=== PATIENT | male | born 1960 | race Caucasian/White ===

== ENCOUNTER 2022-08-10 19:14 | Inpatient (IN) | payer OTHER ==
[~2022-08-10] VITALS: Ht 193 cm; Wt 107.2 kg
[2022-08-10 20:06] LABS: Basophils # (auto) 0 10 ^3/uL (0-0.2); Basophils % (auto) 0.1 % (0.0-2.0); Eosinophils # (auto) 0 10 ^3/uL (0-0.8); Hematocrit 45.5 % (41.0-53.0); Hemoglobin 14.7 g/dL (13.5-17.5); Lymphocytes # (auto) 0.9 10 ^3/uL (0.4-5.4); Lymphocytes % (auto) 7.5 % (10.0-50.0); Mean Corpuscular Hemoglobin 29.3 pg (28.0-32.0); Mean Corpuscular Hgb Conc. 32.4 g/dL (32.0-36.0); Mean Corpuscular Volume 90.5 fL (80.0-100.0); Monocytes # (auto) 1.8 10 ^3/uL (0-1.3); Neutrophils # (auto) 8.8 10 ^3/uL (1.6-8.6); Neutrophils % (auto) 76.4 % (37.0-80.0); Red Blood Cells 5.03 10^6/uL (4.5-5.90); Red Cell Distribution Width 13.7 % (11.8-14.3); White Blood Cell 11.6 10^3/uL (4.4-10.8)
[2022-08-10 20:18] LABS: Albumin 2.8 g/dL (3.4-5.0); Calcium 10.5 mg/dL (8.5-10.1); Magnesium 2.9 mg/dL (1.6-2.6); Potassium 5.2 mmol/L (3.5-5.1)
[2022-08-10 20:26] LABS: Bilirubin, Total 1.2 mg/dL (0.2-1.0); Total Protein 7.3 g/dL (6.4-8.2)
[2022-08-10 20:53] LABS: BUN/Creatinine Ratio 31.9 (10.0-20.0)
[2022-08-10] MEDS ORDERED: SODIUM CHLORIDE 0.9% 1,000 ML IV ONE ×2 (21:00)
[2022-08-10] MEDS ORDERED: InsuLIN REG 1unit/0.01ml Soln (100units/ml) IV ONE (21:00)
[2022-08-10] MEDS ORDERED: ONDANSETRON HCL 4 MG/2 ML VIAL IV PRN (22:30)
[2022-08-10] MEDS ORDERED: ACETAMINOPHEN 325 MG TAB PO PRN (22:30)
[2022-08-10] MEDS ORDERED: DEXTROSE (50%) 50ML SYRG IV PRN (22:30)
[2022-08-10] MEDS ORDERED: HYDROcodone-ACET 5/325MG TAB PO PRN (22:30)
[2022-08-10] MEDS ORDERED: DOCUSATE SOD 100 MG CAP PO PRN (22:30)
[2022-08-10] MEDS ORDERED: NITROGLYCERIN 0.4 MG SL TAB SL PRN (23:00)
[2022-08-10] MEDS ORDERED: MORPHINE SULFATE INJ 2 MG/ml SYRG IV PRN (23:00)
[2022-08-10] MEDS: SODIUM CHLORIDE 0.9% 1,000 ML IV SCH (23:33)
[2022-08-10 23:48] LABS: Urine Amorphous Crystal FEW /hpf (None Seen); Urine Bacteria NONE SEEN /hpf (None Seen); Urine Blood 3+ /uL (Negative); Urine Specific Gravity 1.016 (1.001-1.035); Urine WBC 3 /hpf (0 - 3)
[2022-08-11] MEDS ORDERED: ACCU-CHEK COMFORT CURVE STRIP VI SCH
[2022-08-11] MEDS ORDERED: InsuLIN REG 1unit/0.01ml Soln (100units/ml) SC SCH
[2022-08-11] MEDS ORDERED: InsuLIN REG 1unit/0.01ml Soln (100units/ml) ONE (04:11)
[2022-08-11] MEDS ORDERED: InsuLIN R (HUMAN) 100 UNITS in SODIUM CHL 0.9% 99 ML IV SCH (04:15)
[2022-08-11] MEDS: ACCU-CHEK COMFORT CURVE STRIP VI SCH ×9 (04:33→23:33)
[2022-08-11 06:15] LABS: Basophils # (auto) 0 10 ^3/uL (0-0.2); Basophils % (auto) 0.2 % (0.0-2.0); Eosinophils # (auto) 0 10 ^3/uL (0-0.8); Eosinophils % (auto) 0.4 % (0.0-7.0); Hematocrit 39.9 % (41.0-53.0); Hemoglobin 13.7 g/dL (13.5-17.5); Lymphocytes # (auto) 0.9 10 ^3/uL (0.4-5.4); Lymphocytes % (auto) 10.1 % (10.0-50.0); Mean Corpuscular Hemoglobin 30.3 pg (28.0-32.0); Mean Corpuscular Hgb Conc. 34.2 g/dL (32.0-36.0); Mean Corpuscular Volume 88.4 fL (80.0-100.0); Monocytes # (auto) 1.2 10 ^3/uL (0-1.3); Monocytes % (auto) 13.4 % (0.0-12.0); Neutrophils % (auto) 75.9 % (37.0-80.0); Red Blood Cells 4.51 10^6/uL (4.5-5.90); Red Cell Distribution Width 13.6 % (11.8-14.3); White Blood Cell 9.2 10^3/uL (4.4-10.8)
[2022-08-11 06:42] LABS: Potassium 4.1 mmol/L (3.5-5.1)
[2022-08-11 06:52] LABS: Albumin 2.6 g/dL (3.4-5.0); BUN/Creatinine Ratio 35.7 (10.0-20.0); Bilirubin, Total 0.6 mg/dL (0.2-1.0); Calcium 9.3 mg/dL (8.5-10.1)
[2022-08-11] MEDS: SODIUM CHLORIDE 0.9% 1,000 ML IV SCH ×2 (08:30→18:30)
[2022-08-11] MEDS: FAMOTIDINE (10MG/ML) 2ML VL IV SCH ×2 (09:47→21:10)
[2022-08-11] MEDS: APIXABAN 2.5 MG TAB PO SCH ×2 (09:48→21:24)
[2022-08-11] MEDS ORDERED: ASPirin 81 mg TAB PO SCH (10:00)
[2022-08-11] MEDS ORDERED: DEXTROSE (50%) 50ML SYRG IV PRN (11:45)
[2022-08-11] MEDS ORDERED: INSULIN LANTUS (GLARGINE) 1 /0.01ml (100units/ml) SC ONE (11:45)
[2022-08-11] MEDS ORDERED: PANTOPRAZOLE 40 MG/10 ML VIAL INJ IV ONE (11:45)
[2022-08-11] MEDS ORDERED: CEFEPIME 1GM/ 50ML 50 ML IV ONE (11:45)
[2022-08-11] MEDS ORDERED: hydrALAZINE HCL 20 MG/ML VL IV PRN (12:00)
[2022-08-11] MEDS: InsuLIN REG 1unit/0.01ml Soln (100units/ml) SC SCH ×4 (12:08→23:35)
[2022-08-11 15:24] VITALS: BP 136/90
[2022-08-11 16:51] VITALS: BP_SYST 136; BP_SYST 146; BP_DIAS 90; BP_DIAS 92
[2022-08-11 17:00] VITALS: BP 148/86
[2022-08-11] MEDS ORDERED: LISI2.5T47 PO (17:13)
[2022-08-11] MEDS ORDERED: METO25TA5 PO (17:13)
[2022-08-11] MEDS ORDERED: TADA5TAB11 PO (17:13)
[2022-08-11] MEDS ORDERED: ATOR40TA52 PO (17:13)
[2022-08-11] MEDS ORDERED: DABI150C5 PO (17:13)
[2022-08-11] MEDS: CEFEPIME 1GM/ 50ML 50 ML IV SCH (21:09)
[2022-08-11 22:00] VITALS: BP 146/92
[2022-08-11] MEDS ORDERED: ATORVASTATIN 20 MG TAB PO SCH (22:00)
[2022-08-11] MEDS ORDERED: INSULIN LANTUS (GLARGINE) 1 /0.01ml (100units/ml) SC SCH (22:00)
[2022-08-12] MEDS: InsuLIN REG 1unit/0.01ml Soln (100units/ml) SC SCH ×6 (03:56→23:23)
[2022-08-12] MEDS: ACCU-CHEK COMFORT CURVE STRIP VI SCH ×6 (03:56→23:23)
[2022-08-12 05:00] VITALS: BP 136/74
[2022-08-12] MEDS: SODIUM CHLORIDE 0.9% 1,000 ML IV SCH ×2 (06:11→17:15)
[2022-08-12] MEDS ORDERED: LISI-716 PO (06:28)
[2022-08-12] MEDS ORDERED: ROSU20TA14 PO (06:30)
[2022-08-12 08:56] LABS: Basophils # (auto) 0 10 ^3/uL (0-0.2); Basophils % (auto) 0.2 % (0.0-2.0); Eosinophils # (auto) 0.1 10 ^3/uL (0-0.8); Eosinophils % (auto) 0.6 % (0.0-7.0); Hematocrit 39.8 % (41.0-53.0); Lymphocytes # (auto) 1.1 10 ^3/uL (0.4-5.4); Lymphocytes % (auto) 9.3 % (10.0-50.0); Mean Corpuscular Hemoglobin 28.5 pg (28.0-32.0); Mean Corpuscular Hgb Conc. 32.6 g/dL (32.0-36.0); Mean Corpuscular Volume 87.2 fL (80.0-100.0); Monocytes % (auto) 16.3 % (0.0-12.0); Neutrophils # (auto) 8.9 10 ^3/uL (1.6-8.6); Neutrophils % (auto) 73.6 % (37.0-80.0); Red Blood Cells 4.56 10^6/uL (4.5-5.90); Red Cell Distribution Width 13.7 % (11.8-14.3); White Blood Cell 12.1 10^3/uL (4.4-10.8)
[2022-08-12 09:00] VITALS: BP 147/72
[2022-08-12 09:22] LABS: Potassium 3.7 mmol/L (3.5-5.1)
[2022-08-12 09:29] LABS: Albumin 2.7 g/dL (3.4-5.0); BUN/Creatinine Ratio 30.7 (10.0-20.0); Bilirubin, Total 0.8 mg/dL (0.2-1.0); Calcium 8.8 mg/dL (8.5-10.1); Total Protein 6.7 g/dL (6.4-8.2)
[2022-08-12] MEDS: FAMOTIDINE (10MG/ML) 2ML VL IV SCH ×2 (10:00→22:10)
[2022-08-12] MEDS: APIXABAN 2.5 MG TAB PO SCH (10:01)
[2022-08-12] MEDS: PANTOPRAZOLE 40 MG/10 ML VIAL INJ IV SCH (10:01)
[2022-08-12] MEDS ORDERED: LORazepam 2MG/ML-1ML VIAL IV ONE (11:45)
[2022-08-12] MEDS: CEFEPIME 1GM/ 50ML 50 ML IV SCH ×2 (11:59→22:10)
[2022-08-12 13:00] VITALS: BP 147/85
[2022-08-12 17:00] VITALS: BP 128/59
[2022-08-12 22:00] VITALS: BP 110/57
[2022-08-12] MEDS ORDERED: INSULIN LANTUS (GLARGINE) 1 /0.01ml (100units/ml) SC SCH (22:00)
[2022-08-12 23:21] LABS: Urine Bacteria NONE SEEN /hpf (None Seen); Urine Blood 3+ /uL (Negative); Urine Specific Gravity 1.012 (1.001-1.035); Urine WBC 5 /hpf (0 - 3)
[2022-08-12 23:36] LABS: Protein, Urine 78.5 mg/dL (0.0-11.9)
[2022-08-13] MEDS: SODIUM CHLORIDE 0.9% 1,000 ML IV SCH ×2 (01:30→16:21)
[2022-08-13] MEDS: ACCU-CHEK COMFORT CURVE STRIP VI SCH ×5 (03:54→20:06)
[2022-08-13] MEDS: InsuLIN REG 1unit/0.01ml Soln (100units/ml) SC SCH ×5 (03:57→20:06)
[2022-08-13 05:00] VITALS: BP 138/63
[2022-08-13 07:27] LABS: Hematocrit 35.4 % (41.0-53.0); Hemoglobin 12.2 g/dL (13.5-17.5); Mean Corpuscular Hemoglobin 30.3 pg (28.0-32.0); Mean Corpuscular Hgb Conc. 34.4 g/dL (32.0-36.0); Mean Corpuscular Volume 88.2 fL (80.0-100.0); Red Blood Cells 4.02 10^6/uL (4.5-5.90); Red Cell Distribution Width 13.7 % (11.8-14.3); White Blood Cell 10.2 10^3/uL (4.4-10.8)
[2022-08-13 07:31] LABS: Basophils % (manual) 0 (0.0-2.0); Blast Cells 0; Metamyelocytes % 0; Myelocytes % 0; Promyelocytes % 0; Reactive Lymphocytes 0
[2022-08-13 07:42] LABS: INR 1.1 (0.9-1.15); Partial Thromboplastin Time 34.2 sec (24.6-33.4)
[2022-08-13 07:51] LABS: BUN/Creatinine Ratio 24.2 (10.0-20.0); Calcium 7.7 mg/dL (8.5-10.1); Potassium 3.2 mmol/L (3.5-5.1)
[2022-08-13 08:03] LABS: Band Neutrophils % (manual) 1; Eosinophils % (manual) 2 (0-7); Lymphocytes % (manual) 14 (10.0-50.0); Monocytes % (manual) 17 (0-12)
[2022-08-13 09:00] VITALS: BP 128/73
[2022-08-13] MEDS: PANTOPRAZOLE 40 MG/10 ML VIAL INJ IV SCH (09:48)
[2022-08-13] MEDS: CEFEPIME 1GM/ 50ML 50 ML IV SCH (09:48)
[2022-08-13 13:00] VITALS: BP 149/86
[2022-08-13 17:00] VITALS: BP 130/64
[2022-08-13] MEDS ORDERED: APIXABAN 2.5 MG TAB PO SCH (22:00)
[2022-08-14] MEDS ORDERED: PANTOPRAZOLE 40 MG TAB PO SCH (10:00)
== END 2022-08-13 20:38 | disposition short-term general hospital (02) | DRG 637 ==
LOC: EDBD 19:14 → ER 19:14 → TELE 23:04 → TELE-CENTR 08-11 15:22
PROVIDERS: ADMIT Nurse Practitioner Family; ATTEND Internal Medicine
DX: E11.10 Type 2 diabetes mellitus with ketoacidosis without coma (principal); G92.8 Other toxic encephalopathy; N17.0 Acute kidney failure with tubular necrosis; D68.69 Other thrombophilia; I48.92 Unspecified atrial flutter; E44.0 Moderate protein-calorie malnutrition; E87.1 Hypo-osmolality and hyponatremia; E87.5 Hyperkalemia; E11.65 Type 2 diabetes mellitus with hyperglycemia; E66.01 Morbid (severe) obesity due to excess calories; I48.91 Unspecified atrial fibrillation; D72.829 Elevated white blood cell count, unspecified; E11.22 Type 2 diabetes mellitus with diabetic chronic kidney disease; E11.51 Type 2 diabetes mellitus with diabetic peripheral angiopathy without gangrene; E86.0 Dehydration; E11.21 Type 2 diabetes mellitus with diabetic nephropathy; I12.9 Hypertensive chronic kidney disease with stage 1 through stage 4 chronic kidney disease, or unspecified chronic kidney disease; S92.402A Displaced unspecified fracture of left great toe, initial encounter for closed fracture; W18.39XA Other fall on same level, initial encounter; L97.529 Non-pressure chronic ulcer of other part of left foot with unspecified severity; N18.9 Chronic kidney disease, unspecified; Z82.0 Family history of epilepsy and other diseases of the nervous system; Z79.4 Long term (current) use of insulin; Z68.28 Body mass index [BMI] 28.0-28.9, adult; Z83.3 Family history of diabetes mellitus; Z91.199 Patient's noncompliance with other medical treatment and regimen due to unspecified reason; Z91.81 History of falling; Z88.8 Allergy status to other drugs, medicaments and biological substances; Y93.89 Activity, other specified; Y92.89 Other specified places as the place of occurrence of the external cause; Y99.8 Other external cause status
CPT/HCPCS: 36415; 71045; 73700; 73718; 76775; 80048; 80053; 81001; 82570; 82962; 83036; 83735; 83880; 84156; 84300; 84443; 84484; 85007; 85025; 85027; 85610; 85652; 85730; 87205; 93005; 93306; 93925; 96361; 96365; 96372; 96375; 99291; C9113; G0378; J1815; J2405; J3490